=== PATIENT | female | born 1990 | race Asian ===

== ENCOUNTER 2018-01-04 16:28 | Emergency (ER) | payer OTHER ==
[~2018-01-04] VITALS: Ht 160 cm; Wt 49.9 kg
[2018-01-04 16:37] VITALS: BP 122/75
--- NOTE | 2018-01-04 16:43 | NUR ---
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 BLEEDING CONTROLLED. TETANUS SHOT LAST YEAR.AAOX4 WITH EVEN AND STEADY GAIT; LUNGS CLEAR BL; HR EVEN AND REGULAR; 10 AT THIS TIME; PATIENT POSITIONED FOR COMFORT; HOB ELEVATED; BEDRAILS UP X2; BED DOWN. ER MD MADE AWARE OF PT STATUS.
[2018-01-04 16:45] VITALS: BP 118/69
--- NOTE | 2018-01-04 16:45 | NUR ---
Note jan in ED - 01/04/18 at 1853 by [facility] Patient discharged with v/s stable BY DR THOMAS. Written and verbal after care instructions given and explained. Patient verbalized understanding. Ambulatory with steady gait. All questions addressed prior to discharge. Advised to follow up with PMD.
[2018-01-04] MEDS ORDERED: LIDOCAINE 1% 500 MG/50 ML VIAL INJ SCH (17:15)
[2018-01-04] MEDS ORDERED: NEOMYCIN/POLYMYXIN/BACITRACIN 0.9 GM/1 PKT TP ONE (17:15)
[2018-01-04] MEDS ORDERED: LIDOCAINE MPF 1% - **ER/OR** 5 ML ONE ×2 (17:16→17:20)
== END 2018-01-04 16:45 | disposition home or self-care (01) ==
LOC: MED 16:28
DX: S61.012A Laceration without foreign body of left thumb without damage to nail, initial encounter (principal); X58.XXXA Exposure to other specified factors, initial encounter; Y93.G3 Activity, cooking and baking; Y92.89 Other specified places as the place of occurrence of the external cause; Y99.8 Other external cause status
CPT/HCPCS: 12001; 99283; J2001

== ENCOUNTER 2018-01-06 14:27 | Emergency (ER) | payer OTHER ==
[~2018-01-06] VITALS: Ht 160 cm; Wt 51.8 kg
[2018-01-06 14:45] VITALS: BP 113/65
--- NOTE | 2018-01-06 14:47 | NUR ---
PT AMBULATES TO CHAIR A
--- NOTE | 2018-01-06 15:10 | NUR ---
RECHECK FOR LT HAND LACERATION ON 01/04/2018. DENIES N/V/D; SKIN IS PINK/WARM/DRY; AAOX4 WITH EVEN AND STEADY GAIT; LUNGS CLEAR BL; HR EVEN AND REGULAR; PT DENIES ANY FEVER, CP, SOB, OR COUGH AT THIS TIME; PATIENT STATES PAIN OF 0/10 AT THIS TIME; VSS; ER MD MADE AWARE OF PT STATUS.
[2018-01-06] MEDS ORDERED: BACITRACIN OINT 500 UNITS/GM PKT TP ONE (15:40)
[2018-01-06 16:02] VITALS: BP 115/60
== END 2018-01-06 16:03 | disposition home or self-care (01) ==
LOC: MED 14:27
DX: S61.412D Laceration without foreign body of left hand, subsequent encounter (principal); X58.XXXD Exposure to other specified factors, subsequent encounter
CPT/HCPCS: 99282

== ENCOUNTER 2018-01-11 15:59 | Emergency (ER) | payer OTHER ==
[~2018-01-11] VITALS: Ht 167.6 cm; Wt 52.2 kg
[2018-01-11 16:17] VITALS: BP 95/65
--- NOTE | 2018-01-11 16:37 | NUR ---
Dr. Mcpherson evaluating patient.
[2018-01-11] MEDS ORDERED: BACITRACIN OINT 500 UNITS/GM PKT TP ONE ×2 (16:45→16:46)
--- NOTE | 2018-01-11 16:45 | NUR ---
patient was brought in via private vehicle for stitch removal. per md, stitches are not ready to be removed. to follow up in three days. patient is alert and oriented x 4. respirations are even and unlabored. patient denies any cough or dyspnea. patient denies any fever, chills, n,v,d, numbness or tingling. skin w,d,i. localized skin abnormality to left thumb, stictches in place. no redness, swelling, or pain observed. treatment provided per md's order and covered with dressing.
--- NOTE | 2018-01-11 17:12 | NUR ---
Patient discharged with v/s stable. Written and verbal after care instructions given and explained. Patient verbalized understanding. Ambulatory with steady gait. All questions addressed prior to discharge. Advised to follow up with PMD. instructed patient to follow up in three days for stitch removal per md's orders.
== END 2018-01-11 17:12 | disposition home or self-care (01) ==
LOC: MED 15:59
DX: S61.211D Laceration without foreign body of left index finger without damage to nail, subsequent encounter (principal); S61.012D Laceration without foreign body of left thumb without damage to nail, subsequent encounter; X58.XXXD Exposure to other specified factors, subsequent encounter
CPT/HCPCS: 99282

== ENCOUNTER 2018-03-20 22:14 | Emergency (ER) | payer OTHER ==
[~2018-03-20] VITALS: Ht 160 cm; Wt 53.3 kg
--- NOTE | 2018-03-20 22:25 | NUR ---
ASSUMED CARE OF PT AT THIS TIME. C/O SUDDEN ONSET LEFT FOOT SWELLING AND REDNESS X 3 DAYS [employer]. PT STATES, "I THINK I WAS BITTEN BY A BUG." AAOX4 WITH EVEN AND STEADY GAIT; PATIENT STATES PAIN OF 1/10 AT THIS TIME; VSS; PATIENT POSITIONED FOR COMFORT; HOB ELEVATED; BEDRAILS UP X2; BED DOWN. ER MD MADE AWARE OF PT STATUS. WILL CONTINUE TO MONITOR.
[2018-03-20 22:26] VITALS: BP 123/75
--- NOTE | 2018-03-20 22:29 | NUR ---
PT.AMBULATED TO ER BED 6
[2018-03-20] MEDS ORDERED: diphenhydrAMINE 50 MG/ML VIAL IM ONE (23:10)
[2018-03-20] MEDS ORDERED: DEXAMETHASONE 10 MG/ML VIAL IM ONE (23:10)
[2018-03-20 23:45] VITALS: BP 118/74
--- NOTE | 2018-03-20 23:45 | NUR ---
Patient discharged with v/s stable. Written and verbal after care instructions given and explained. Patient alert, oriented and verbalized understanding of instructions. Ambulatory with steady gait. All questions addressed prior to discharge. ID band removed. Patient advised to follow up with PMD. Rx of PREDNISONE AND ATARAX given. Patient educated on indication of medication including possible reaction and side effects. Opportunity to ask questions provided and answered.
== END 2018-03-20 23:45 | disposition home or self-care (01) ==
LOC: MED 22:14
DX: S90.862A Insect bite (nonvenomous), left foot, initial encounter (principal); Z91.013 Allergy to seafood; W57.XXXA Bitten or stung by nonvenomous insect and other nonvenomous arthropods, initial encounter; Y93.89 Activity, other specified; Y92.89 Other specified places as the place of occurrence of the external cause; Y99.8 Other external cause status
CPT/HCPCS: 96372; 99284; J1100; J1200